=== PATIENT | female | born 1970 | race American Indian/Alaskan Native ===

== ENCOUNTER 2019-03-24 11:07 | Outpatient (CLI) | payer MEDICAID ==
--- NOTE | 2019-03-24 12:38 | XRay Report ---
. CHEST 2 VIEWS INDICATION: CHRONIC COUGH. COMPARISON: None FINDINGS: Support devices: None. Heart: Within normal limits. Lungs/pleura: No acute air space or interstitial disease. No pneumothorax. Additional findings: None. IMPRESSION: Normal chest x-ray Signer Name: Kofi Lowry Jr, MD Signed: 03/24/2019 12:34 PM Workstation Name: [id number]
[2019-03-24 12:54] LABS: Alanine Aminotransferase 8 units/L (7-56); Albumin 4.5 g/dL (3.9-5); BUN/Creatinine Ratio 17; Blood Urea Nitrogen 10 mg/dL (7-17); Calcium 9.4 mg/dL (8.4-10.2); Chol/HDL Ratio 5.16 %; HDL Cholesterol 43 mg/dL (40-59); Hemolysis Index 6; LDL Cholesterol,Direct 181 mg/dL (50-130)
== END 2019-03-24 11:08 | disposition home or self-care (01) ==
LOC: XRAY 11:07
PROVIDERS: ATTEND Internal Medicine
DX: R05 Cough (principal)
CPT/HCPCS: 36415; 36600; 71046; 80053; 80061; 82785; 82803; 84436; 84443

== ENCOUNTER 2019-04-01 10:54 | Outpatient (CLI) | payer MEDICAID ==
--- NOTE | 2019-04-01 11:34 | Mammography Report ---
BILATERAL DIGITAL SCREENING MAMMOGRAM WITH CAD INDICATION: Routine screening mammography. TECHNIQUE: Digital bilateral 2D mammography was obtained in the craniocaudal and mediolateral obliq ue projections. This examination was interpreted with the benefit of Computer-Aided Detection analysi s. COMPARISON: 03/07/2014, 09/16/2012. FINDINGS: Breast Density: There are scattered areas of fibroglandular density. No suspicious mass, microcalcifications, or architectural distortion. IMPRESSION: No evidence of breast malignancy. Recommend routine screening mammogram in one year. BI-RADS Category 1: Negative. No mammographic evidence of malignancy. Recommend routine screening m ammography in one year. A "normal" or negative report should not discourage follow up or biopsy of a clinically significant f inding. A written summary of these findings will be mailed to the patient. The patient will be entered into a mammography reporting system which will generate a reminder letter for the patient's next appointmen t at the appropriate interval. The [employer] recommends yearly mammograms starting at age 40 and continuing as l bob as a woman is in good health. Breast MRI is recommended for women with an approximate 20-25% or greater lifetime risk of breast cancer, including women with a strong family history of breast or ova jose cancer or who have been treated for Hodgkin's disease. Signer Name: Manoj Burgess MD Signed: 04/01/2019 11:30 AM Workstation Name: [id number]
== END 2019-04-01 10:55 | disposition home or self-care (01) ==
LOC: MAMMO 10:54
PROVIDERS: ATTEND Family Medicine
DX: Z12.31 Encounter for screening mammogram for malignant neoplasm of breast (principal)
CPT/HCPCS: 77067